=== PATIENT | female | born 2000 ===

== ENCOUNTER → 2021-04-05 | Outpatient (CLI) | payer OTHER ==
[2021-04-06 09:51] LABS: Candida species (DNA Probe) Negative (NEGATIVE); G. vaginalis (DNA Probe) Negative (NEGATIVE); T. vaginalis (DNA Probe) Negative (NEGATIVE)
== END ==
LOC: LAB SHORT 19:05
PROVIDERS: Registered Nurse Community Health
DX: N89.8 Other specified noninflammatory disorders of vagina (principal)
CPT/HCPCS: 87480; 87510; 87660

== ENCOUNTER 2021-08-08 06:10 | Day surgery (SDC) | payer OTHER ==
[~2021-08-08] VITALS: Ht 160 cm; Wt 45.7 kg
== END 2021-08-08 09:10 | disposition home or self-care (01) ==
LOC: ORSCSDS 06:10
PROVIDERS: Otolaryngology
PROC: 0CTPXZZ Resection of Tonsils, External Approach (ICD-10-PCS; principal; 2021-08-08 07:30)
DX: J35.01 Chronic tonsillitis (principal)
CPT/HCPCS: 88304; J2250; J2310; J2704; J3010

== ENCOUNTER → 2024-04-21 | Outpatient (CLI) | payer OTHER | END | disposition home or self-care (01) | LOC: LAB 13:45 → LAB SHORT 13:45 | DX: N89.8 Other specified noninflammatory disorders of vagina (principal) | CPT/HCPCS: 87070; 87205 ==